=== PATIENT | female | born 1935 | race Caucasian/White ===

== ENCOUNTER 2019-11-24 23:48 | Emergency (ER) | payer MEDICARE ==
[~2019-11-24] VITALS: Ht 149.9 cm; Wt 43.1 kg
[~2019-11-24 23:48] MED LIST: CYCLOBENZAPRINE5 MG PO; EVISTA60 MG PO; SERTRALINE HCL50 MG PO; ULTRAM 50MG50 MG PO; ZETIA10 MG PO
[2019-11-25] MEDS ORDERED: CEFTRIAXONE SOD 1 GM VIAL ONE (00:52)
[2019-11-25] MEDS ORDERED: SODIUM CHLORIDE 0.9% 1000ML 1,000 ML ONE (00:53)
[2019-11-25] MEDS ORDERED: SODIUM CHLORIDE 0.9% 1000ML 500 ML IV ONE (01:00)
[2019-11-25] MEDS ORDERED: MACRODANTIN100 MG PO (01:27)
[2019-11-25] MEDS ORDERED: CEFTRIAXONE SOD 1 GM VIAL IV ONE (01:30)
== END 2019-11-25 01:40 | disposition home or self-care (01) ==
LOC: MERGE 23:48 → FSED 23:48
DX: R55 Syncope and collapse (principal); R53.1 Weakness; N30.00 Acute cystitis without hematuria
CPT/HCPCS: 80053; 81003; 85025; 99283; J0696; J7030